=== PATIENT | female | born 1965 | race African-American/Black ===

== ENCOUNTER 2025-05-08 16:14 | Emergency (ER) | payer OTHER ==
[~2025-05-08] VITALS: Ht 167.6 cm; Wt 100.0 kg
[2025-05-08 16:17] VITALS: O2SAT 97
[2025-05-08] MEDS: IBUPROFEN 800MG TABLET PO ONE (16:30)
[2025-05-08] MEDS: ACETAMINOPHEN 500MG TABLET PO ONE (16:38)
[2025-05-08] MEDS ORDERED: IBUP-2030 MT (18:42)
[2025-05-08 18:54] VITALS: BP 155/72; PULSE 85; RESP 17; TEMP 36.9; O2SAT 98
== END 2025-05-08 18:55 | disposition home or self-care (01) ==
LOC: ER 16:14
DX: S00.93XA Contusion of unspecified part of head, initial encounter (principal); E01.0 Iodine-deficiency related diffuse (endemic) goiter; W19.XXXA Unspecified fall, initial encounter; Y93.89 Activity, other specified; Y92.89 Other specified places as the place of occurrence of the external cause; Y99.8 Other external cause status
CPT/HCPCS: 71250; 74176; 99284